=== PATIENT | female | born 1955 | race Caucasian/White ===

== ENCOUNTER → 2023-10-13 10:51 | Outpatient (REF) | payer MEDICARE, BC, SELFPAY | LOC: HWWDC 10:51 | PROVIDERS: ATTENDING PHYSICIAN Obstetrics & Gynecology Gynecology; FAMILY PHYSICIAN Family Medicine | DX: Z12.31 Encounter for screening mammogram for malignant neoplasm of breast (principal) | CPT/HCPCS: 77063; 77067 ==

== ENCOUNTER 2023-12-16 21:22 | Emergency (ER) | payer MEDICARE, BC, SELFPAY ==
[2023-12-16] VITALS (7 sets, daily range): BP systolic 111–146; BP diastolic 61–77; PULSE 74–87
[2023-12-16 22:05] LABS: % Basophils 0.5 % (0-2); % Immature Granulocytes 0.3 % (0-0.5); % Lymphocytes 16.9 % (20.5-51.1); % Neutrophils 72.3 % (42.2-75.2); Absolute Basophils 0.1 10^3/uL (0-0.2); Absolute Eosinophils 0.2 10^3/uL (0-0.7); Absolute Lymphocytes 1.7 10^3/uL (1.2-3.4); Absolute Monocytes 0.8 10^3/uL (0.1-0.6); Absolute Neutrophils 7.3 10^3/uL (1.4-6.5); Hematocrit 33.1 % (37.0-47.0); Hemoglobin 11.6 g/dL (12.0-16.0); Mean Corpuscular Hgb 32.5 pg (27.0-31.0); Mean Corpuscular Volume 92.7 fL (81.0-99.0); Mean Platelet Volume 9.6 fL (7.4-10.4); Nucleated Red Blood Cells % 0 %; Platelet Count 242 10^3/uL (130-400); Red Blood Cell Count 3.57 10^6/uL (4.20-5.40); White Blood Cell Count 10.1 10^3/uL (4.8-10.8)
[2023-12-16 22:26] LABS: ALT (SGPT) 20 U/L (0-35); AST (SGOT) 38 U/L (14-36); Albumin 4.4 g/dl (3.5-5.0); Alkaline Phosphatase 48 U/L (38-126); Blood Urea Nitrogen 19 mg/dl (7-17); Calcium 9.7 mg/dl (8.4-10.2); Carbon Dioxide 22 mmol/L (22-30); Chloride 108 mmol/L (98-107); Glucose 101 mg/dl (70-99); Sodium 140 mmol/L (135-145); Total Bilirubin 0.5 mg/dl (0.2-1.3); eGFR > 60.00
[2023-12-17 00:16] VITALS: BP 124/60
--- NOTE | 2023-12-17 00:41 | ED.GENMED ---
History of Present Illness
General
Chief Complaint: Dizziness
Source: patient and spouse
Exam Limitations: none
Time Seen by Provider: 12/16/23 22:18
Travel History
Have you had any contact with someone who has COVID-19?: No
Do you have any symptoms of coronavirus? Fever > 100 degrees, chills, cough, shortness of breath, sore throat, loss of taste or smell, muscle aches, or headache?: No
History of Present Illness
History of Present Illness:
68-year-old female who presents after noticed there was some blood coming from her mouth while she was sleeping. The patient states that she was tired because she was up all night due to some hip pain which is being evaluated as an
outpatient. Patient's states that he woke her up because she had been sleeping for most 2 hours and dinner was ready. She seemed a little groggy at first for about 15 seconds and then came back to normal. The patient otherwise feels okay.
She states she did feel little bit of cramping in her calves but otherwise felt no chest pain or shortness of breath. did not see any kind of seizure activity.
Past History
Past History
ED Past Medical History: Other (Irritable bowel syndrome, diverticulitis, GERD)
ED Past Surgical History: None
Social History
Personal:
Living: with family
Phy Exam
Physical Exam
Physical Exam:
CONSTITUTIONAL Patient alert and oriented to person, place and time. Well-appearing. Vital signs reviewed.
HEAD atraumatic, normocephalic.
EYES eyelids normal to inspection, Pupils equally round and reactive to light, Extraocular muscles intact, Conjunctiva normal, Sclera normal.
ENT small/minor right tongue abrasion
NECK normal range of motion, Trachea midline, no jugular venous distention.
RESPIRATORY CHEST No respiratory distress noted, Chest expansion equal, Bilateral breath sounds clear.
CARDIOVASCULAR regular rate and rhythm, Heart sounds normal.
ABDOMEN abdomen nontender, Bowel sounds normal. No distention.
BACK normal inspection, no obvious deformities
UPPER EXTREMITY range of motion normal, Motor strength normal, no cyanosis, no edema.
LOWER EXTREMITY range of motion normal, Motor strength normal, no cyanosis, no edema.
NEURO Speech normal, No focal motor deficits, Sammy coma scale 15, Memory normal, Cranial Nerves intact to screening exam. No pronator drift. Normal [id number].
SKIN skin warm, dry, and normal in color.
PSYCHIATRIC patient oriented to person place and time, Normal affect.
Course
Orders/Labs/Results
Orders:
Orders
12/16/23 21:50
EKG [Electrocardiogram (*1)] Urgent
Reason for Study: Vertigo / Dizzy
12/16/23 21:51
EKG- Treatment ONCE
12/16/23 21:58
Complete Blood Count/With Diff Urgent
Comprehensive Metabolic Panel Urgent
12/16/23 22:42
CT Head W/o Iv Contrast Urgent
Comment:
Reason For Exam: dizzy, possible seizure
12/16/23 22:48
Orthostatic VS- Treatment ONCE
Abnormal Lab Results
12/16/23
21:58
RBC 3.57 L 10^6/uL
(4.20-5.40)
Hgb 11.6 L g/dL
(12.0-16.0)
Hct 33.1 L %
(37.0-47.0)
MCH 32.5 H pg
(27.0-31.0)
Absolute Neuts (auto) 7.3 H 10^3/uL
(1.4-6.5)
Absolute Monos (auto) 0.8 H 10^3/uL
(0.1-0.6)
Lymphocytes % 16.9 L %
(20.5-51.1)
Chloride 108 H mmol/L
(98-107)
BUN 19 H mg/dl
(7-17)
Glucose 101 H mg/dl
(70-99)
AST 38 H U/L
(14-36)
12/16/23 21:58
12/16/23 21:58
Vital Signs
Initial and Last Documented VS:
Initial Vital Signs
Temp Pulse Resp BP Pulse Ox
98.5 F 82 16 146/77 97
12/16/23 21:36 12/16/23 21:36 12/16/23 21:36 12/16/23 21:36 12/16/23 21:36
Last Documented Vital Signs
Temp Pulse Resp BP Pulse Ox
98.5 F 88 25 125/66 99
12/16/23 21:36 12/16/23 23:30 12/16/23 23:30 12/16/23 23:00 12/16/23 23:30
MDM/Problems Addressed
MDM/Problems Addressed:
Tongue abrasion, rule out seizure
*Radiology
Radiology exam reviewed: preliminary read by ED provider (No obvious intracranial hemorrhage) and radiology read reviewed
*Pulse Oximetry
Patient hypoxic: no
*EKG
Interpreted by ED Provider?: Yes
Interpretation: normal
Rate: normal
Rhythm: sinus
[place]: normal axis
QRS Pattern: normal QRS
Ischemia: no ischemia
*Shoe Cutter Interpretation
Rate: normal
Interpretation: normal
Rhythm: sinus
*Critical Care Note
Total Time (30-74mins, 75-104mins- exclusive of procedures): Not Applicable
Data Reviewed
Review of Other/Old Records Reveals: Operative Reports (Cardiac cath report reviewed from December 2020, normal)
Source: patient
Prescriptions/Medications Considered But Not Given:
Considered antiepileptics but no clear evidence of seizure
Patient Management
Escalation/DeEscalation of care consider admission/obs:
Tongue abrasion noted but no noted seizure activity or post ictal phase that is consistent with seizure. In addition not acidotic. Of course difficult to ascertain as the patient was sleeping in her bedroom. Labs grossly unremarkable. Exam
normal. Okay for discharge and outpatient PCP follow-up
ED Attending Note
-
Portions of this chart may have been created with voice recognition software.� Occasional wrong word or��sound alike� substitutions may have occurred due to the inherent limitations of voice recognition software.
Discharge Plan
Departure
Patient Disposition: Home (Routine Discharge)
Date of Disposition: 12/17/23
Time of Disposition: 00:44
Patient with high blood pressure during this ER visit?: No
Discharge Problem:
Abrasion of tongue
Prescriptions:
No Action
Centrum Silver Women Tablet
1 tab PO DAILY
cyanocobalamin (vitamin B-12) 1,000 MCG tablet
1,000 mcg PO DAILY
fluticasone propionate [Flovent HFA] 1 PUFF HFA aerosol inhaler
2 puff inhalation R BID
omeprazole magnesium 20 MG tablet,delayed release (DR/EC)
20 mg PO DAILY
Patient Comments:
take 30 minutes before meal
L.acidoph, paracasei,B. lactis 1 EACH capsule
1 ea PO DAILY
Referrals:
Mikal Davidson MD [Family Provider] -
Activity Restrictions/Additional Instructions:
Return immediately for seizure activity, change in mentation, chest pain, shortness of breath, weakness of any kind, lethargy, weakness or any other concerns. Please see your doctor in the next 3 to 5 days for follow-up and reevaluation. If
symptoms recur, further workup may be necessary.
Interventions
Interventions:
*Risk Screen - Suicide Last Done: 12/16/23 21:36
*General Assessment Last Done: 12/16/23 21:36
*Neglect/Abuse Screening Last Done: 12/16/23 21:36
*ED COVID-19 Vaccine History Last Done: 12/16/23 22:17
ED- Neurological Assessment Last Done: 12/16/23 23:30
ED Swallowing Screen Last Done: 12/16/23 23:30
Discharge Date and Time
Print Language: FAROESE
[2023-12-17 00:58] VITALS: BP 127/70
== END 2023-12-17 01:05 | disposition home or self-care (01) ==
LOC: EMR 21:22
PROVIDERS: Emergency Medicine; EMERGENCY PHYSICIAN Emergency Medicine; FAMILY PHYSICIAN Family Medicine
DX: S00.512A Abrasion of oral cavity, initial encounter (principal); X58.XXXA Exposure to other specified factors, initial encounter
CPT/HCPCS: 99285; 70450; 80053; 85025; 93005

== ENCOUNTER → 2024-03-02 07:52 | Outpatient (REF) | payer MEDICARE, BC, SELFPAY ==
[2024-03-02 10:09] LABS: % Basophils 1.3 % (0-2); % Eosinophils 5.6 % (0-6); % Immature Granulocytes 0.2 % (0-0.5); % Lymphocytes 28.5 % (20.5-51.1); % Monocytes 9.5 % (1.7-9.3); % Neutrophils 54.9 % (42.2-75.2); Absolute Basophils 0.1 10^3/uL (0-0.2); Absolute Eosinophils 0.3 10^3/uL (0-0.7); Absolute Lymphocytes 1.6 10^3/uL (1.2-3.4); Absolute Monocytes 0.5 10^3/uL (0.1-0.6); Absolute Neutrophils 3.1 10^3/uL (1.4-6.5); Hematocrit 38.5 % (37.0-47.0); Hemoglobin 13.1 g/dL (12.0-16.0); Mean Corpuscular Hgb 32.9 pg (27.0-31.0); Mean Corpuscular Volume 96.7 fL (81.0-99.0); Mean Platelet Volume 9.7 fL (7.4-10.4); Nucleated Red Blood Cells % 0 %; Platelet Count 282 10^3/uL (130-400); Red Blood Cell Count 3.98 10^6/uL (4.20-5.40); Red Cell Dist. Width 12.2 % (11.5-14.5); White Blood Cell Count 5.6 10^3/uL (4.8-10.8)
[2024-03-02 11:49] LABS: Urine Protein < 5 mg/dl
[2024-03-02 12:34] LABS: ALT (SGPT) 29 U/L (0-35); AST (SGOT) 35 U/L (14-36); Albumin 4.5 g/dl (3.5-5.0); Alkaline Phosphatase 55 U/L (38-126); Blood Urea Nitrogen 20 mg/dl (7-17); Calcium 9.7 mg/dl (8.4-10.2); Carbon Dioxide 26 mmol/L (22-30); Chloride 107 mmol/L (98-107); Glucose 99 mg/dl (70-99); HDL Cholesterol 99 mg/dl; LDL Cholesterol, Calculated 134 mg/dl; Phosphorus 4.5 mg/dl (2.5-4.5); Potassium 4.5 mmol/L (3.5-5.1); Sodium 140 mmol/L (135-145); Total Bilirubin 0.5 mg/dl (0.2-1.3); Total Cholesterol 245 mg/dl (50-199); Total Protein 7.1 g/dl (6.3-8.2); Triglyceride 63 mg/dl (10-149); Very Low Density Lipoprotein 12 mg/dl (0-30); eGFR > 60.00
[2024-03-02 12:59] LABS: TSH 1.48 uIU/ml (0.47-4.68)
== END ==
LOC: HWLAB 07:52
PROVIDERS: ATTENDING PHYSICIAN Internal Medicine; FAMILY PHYSICIAN Family Medicine
DX: E78.2 Mixed hyperlipidemia (principal); D64.9 Anemia, unspecified; E87.5 Hyperkalemia; E04.1 Nontoxic single thyroid nodule
CPT/HCPCS: 36415; 80053; 80061; 82570; 84100; 84156; 84443; 85025

== ENCOUNTER → 2024-03-19 07:51 | Outpatient (REF) | payer MEDICARE, BC, SELFPAY | LOC: HWRAD 07:51 | PROVIDERS: ATTENDING PHYSICIAN Internal Medicine Endocrinology, Diabetes & Metabolism; FAMILY PHYSICIAN Family Medicine; REFERRING PHYSICIAN Obstetrics & Gynecology Gynecology | DX: M85.80 Other specified disorders of bone density and structure, unspecified site (principal); M85.89 Other specified disorders of bone density and structure, multiple sites | CPT/HCPCS: 77080 ==

== ENCOUNTER 2024-05-28 05:23 | Inpatient (IN) | payer MEDICARE, BC, SELFPAY ==
[2024-05-28] VITALS (12 sets, daily range): BP systolic 101–140; BP diastolic 53–91; BMI 21.2; BMI 20.2
[2024-05-28 00:46] LABS: % Basophils 0.6 % (0-2); % Eosinophils 3.2 % (0-6); % Immature Granulocytes 1.2 % (0-0.5); % Lymphocytes 27.2 % (20.5-51.1); % Monocytes 6.7 % (1.7-9.3); % Neutrophils 61.1 % (42.2-75.2); Absolute Basophils 0.1 10^3/uL (0-0.2); Absolute Eosinophils 0.3 10^3/uL (0-0.7); Absolute Immature Granulocytes 0.1 10^3/uL (0-0.05); Absolute Lymphocytes 2.6 10^3/uL (1.2-3.4); Absolute Monocytes 0.7 10^3/uL (0.1-0.6); Absolute Neutrophils 5.9 10^3/uL (1.4-6.5); Hematocrit 36.5 % (37.0-47.0); Hemoglobin 12.5 g/dL (12.0-16.0); Mean Corp Hgb Conc. 34.2 g/dL (33.0-37.0); Mean Corpuscular Hgb 32.4 pg (27.0-31.0); Mean Corpuscular Volume 94.6 fL (81.0-99.0); Mean Platelet Volume 9.8 fL (7.4-10.4); Nucleated Red Blood Cells % 0 %; Platelet Count 291 10^3/uL (130-400); Red Blood Cell Count 3.86 10^6/uL (4.20-5.40); Red Cell Dist. Width 12.3 % (11.5-14.5); White Blood Cell Count 9.7 10^3/uL (4.8-10.8)
--- NOTE | 2024-05-28 01:03 | ED.GENMED ---
History of Present Illness
<CARLEY Ashraf - Last Filed: 05/28/24 06:14>
General
Chief Complaint: Seizure
Source: patient and significant other
Exam Limitations: clinical condition
Time Seen by Provider: 05/28/24 00:38
Nursing documentation reviewed up to this point in time: agreed with
History of Present Illness
History of Present Illness:
Patient is a 69y F who presents to ED via EMS for suspected seizure activity witnessed by . He reports noticing her breathing very heavily during sleep and tried to wake her up. Reports she would not wake up but her eyes opened. States
breathing stopped after a few mins but she continued to stare unresponsive. Thinks she might have had some red tinged drool coming out of her mouth. He was concerned for seizure due to suspected seizure occurring in November. Is scheduled for evaluation
w/ maycol next month. Pt remained unresponsive until 911 arrived. She does not remember the ambulance ride and is currently very disoriented. She is questioning what day it is and does not remember going to bed. She does not remember dinner or the
events of the day until reminds her. Currently admits to nausea, fatigue, and hypothermia. She states multiple times that she feels motion sick and very cold. She denies [place], dizziness, chest pain, SOB, and V/D/C. Denies recent illness.
States she felt well today w/o any sxs.
Past History
<Steve Romero DO - Last Filed: 05/28/24 03:41>
Past History
ED Past Medical History: Other (Irritable bowel syndrome, diverticulitis, GERD)
ED Past Surgical History: None
Social History
Personal:
Living: with family
Review of Systems
<CARLEY Ashraf - Last Filed: 05/28/24 06:14>
Review of Systems
Constitutional: Reports fatigue and chills; Denies fever
Respiratory: Denies cough or trouble breathing
Cardiac: Denies chest pain or palpitations
ABD/GI: Reports nausea; Denies abdominal pain, vomiting, diarrhea or constipated
: Denies dysuria
Musculoskeletal: Denies joint pain, muscle pain, edema, neck pain or back pain
Neurological: Denies dizzy, headache, weakness or numbness
Phy Exam
<ST AndriySD - Last Filed: 05/28/24 06:14>
General Physical Exam
General Presentation: no apparent distress
General age: appears stated age
General Skin: warm and dry
General Habitus: normal
General Mental: confused
ENT Exam
ENT Exam: EOMI, pharynx normal, normocephalic and swallowing well
Eye Exam
Eye Exam: PERRL, conjunctiva normal and visual acuity normal
Cardiovascular Exam
Cardiovascular Exam: regular rate/rhythm, no edema, no gallop and no murmur
Pulmonary Exam
Pulmonary Exam: lungs clear, no respiratory distress, no rales, no crackles, no rhonchi and no wheezing
Neurological Exam
Neurological Exam: alert, oriented x3 and speech normal
Cranial
Cranial Nerves: normal and no facial asymetry
EOM (CN3/4/6): intact
Motor
Seizure Activity: none
Bilateral upper extremities: 5
Bilateral lower extremities: 5
Comment
comment:
unable to complete neuro exam due to development of nausea/vomiting
Course
<[facility] Filed: 05/28/24 06:14>
Orders/Labs/Results
Orders:
Orders
05/28/24 00:29
CT Head W/o Iv Contrast Urgent
Comment:
Reason For Exam: seizure
05/28/24 00:31
CMP [Comprehensive Metabolic Panel] Urgent
Complete Blood Count/With Diff Urgent
05/28/24 01:35
Ondansetron Injectable [Zofran] 4 mg .ROUTE .STK-MED ONE
05/28/24 01:36
Ondansetron Injectable [Zofran] 4 mg IV NOW STA
05/28/24 02:20
Levetiracetam Injectable [Keppra] 2,000 mg IV NOW STA
05/28/24 02:31
CT Head & Neck Angio W/wo IV Urgent
Comment:
Reason For Exam: Transient expressive aphasia, new onset
05/28/24 02:38
Levetiracetam Injectable [Keppra] 500 mg .ROUTE .STK-MED ONE
05/28/24 05:02
Admit/Transfer Patient As Directed
Co-Sign Provider:
Level of Care: Inpatient admission
Assign to:: Telemetry
Physician / Group: Jorgito
Diagnosis: Seizure
Reason for Telemetry: Arrhythmia
Date to Stop Telemetry: 05/31/24
Time to Stop Telemetry: 11:00
Reason for Hospitalization: Seizure
Expected length of stay greater than two midnights?: Yes
ELOS- Estimated Length of Stay in days: 2
I certify the patient meets the requirements for IP care: Yes
PRN Pain Medication Management As Directed
May give lesser potent ordered pain med per pt: Yes
preference::
Protocol:: Medication orders for pain may be administered in a
manner that supports deferring to patient preference
when the pt is:
- Requesting an ordered lesser potent pain medication.
Least to most potent pain medications are defined
as: acetaminophen < NSAID < tramadol < opioids
(morphine, oxycodone, hydromorphone).
- Requesting a lesser dose of the same medication IF
ORDERED.
- Requesting a less intrusive route of administration
if both routes are prescribed by the provider (PO <
IV).
05/28/24 05:03
Code Status As Directed
Resuscitation Status: Full Code
05/31/24 11:00
DC Protocol for Telemetry ONCE
Abnormal Lab Results
05/28/24 05/28/24
00:31 02:23
RBC 3.86 L 10^6/uL
(4.20-5.40)
Hct 36.5 L %
(37.0-47.0)
MCH 32.4 H pg
(27.0-31.0)
Abs Immat Gran (auto) 0.1 H 10^3/uL
(0-0.05)
Absolute Monos (auto) 0.7 H 10^3/uL
(0.1-0.6)
Immature Gran % 1.2 H %
(0-0.5)
Carbon Dioxide 19 L mmol/L
(22-30)
Glucose 131 H mg/dl
(70-99)
POC Glucose 115 H mg/dl
(70-99)
05/28/24 00:31
05/28/24 00:31
Vital Signs
Initial and Last Documented VS:
Initial Vital Signs
Temp Pulse Resp BP Pulse Ox
98.4 F 111 19 140/91 96
05/28/24 00:22 05/28/24 00:22 05/28/24 00:22 05/28/24 00:22 05/28/24 00:22
Last Documented Vital Signs
Temp Pulse Resp BP Pulse Ox
98.4 F 84 16 127/58 94
05/28/24 00:22 05/28/24 03:00 05/28/24 03:00 05/28/24 03:00 05/28/24 03:00
<Steve Romero, DO - Last Filed: 05/28/24 03:41>
Orders/Labs/Results
Orders:
Orders
05/28/24 00:29
CT Head W/o Iv Contrast Urgent
Comment:
Reason For Exam: seizure
05/28/24 00:31
CMP [Comprehensive Metabolic Panel] Urgent
Complete Blood Count/With Diff Urgent
05/28/24 01:35
Ondansetron Injectable [Zofran] 4 mg .ROUTE .STK-MED ONE
05/28/24 01:36
Ondansetron Injectable [Zofran] 4 mg IV NOW STA
05/28/24 02:20
Levetiracetam Injectable [Keppra] 2,000 mg IV NOW STA
05/28/24 02:31
CT Head & Neck Angio W/wo IV Urgent
Comment:
Reason For Exam: Transient expressive aphasia, new onset
05/28/24 02:38
Levetiracetam Injectable [Keppra] 500 mg .ROUTE .STK-MED ONE
05/28/24 05:02
Admit/Transfer Patient As Directed
Co-Sign Provider:
Level of Care: Inpatient admission
Assign to:: Telemetry
Physician / Group: Jorgito
Diagnosis: Seizure
Reason for Telemetry: Arrhythmia
Date to Stop Telemetry: 05/31/24
Time to Stop Telemetry: 11:00
Reason for Hospitalization: Seizure
Expected length of stay greater than two midnights?: Yes
ELOS- Estimated Length of Stay in days: 2
I certify the patient meets the requirements for IP care: Yes
PRN Pain Medication Management As Directed
May give lesser potent ordered pain med per pt: Yes
preference::
Protocol:: Medication orders for pain may be administered in a
manner that supports deferring to patient preference
when the pt is:
- Requesting an ordered lesser potent pain medication.
Least to most potent pain medications are defined
as: acetaminophen < NSAID < tramadol < opioids
(morphine, oxycodone, hydromorphone).
- Requesting a lesser dose of the same medication IF
ORDERED.
- Requesting a less intrusive route of administration
if both routes are prescribed by the provider (PO <
IV).
05/28/24 05:03
Code Status As Directed
Resuscitation Status: Full Code
05/31/24 11:00
DC Protocol for Telemetry ONCE
Abnormal Lab Results
05/28/24 05/28/24
00:31 02:23
RBC 3.86 L 10^6/uL
(4.20-5.40)
Hct 36.5 L %
(37.0-47.0)
MCH 32.4 H pg
(27.0-31.0)
Abs Immat Gran (auto) 0.1 H 10^3/uL
(0-0.05)
Absolute Monos (auto) 0.7 H 10^3/uL
(0.1-0.6)
Immature Gran % 1.2 H %
(0-0.5)
Carbon Dioxide 19 L mmol/L
(22-30)
Glucose 131 H mg/dl
(70-99)
POC Glucose 115 H mg/dl
(70-99)
05/28/24 00:31
05/28/24 00:31
Vital Signs
Initial and Last Documented VS:
Initial Vital Signs
Temp Pulse Resp BP Pulse Ox
98.4 F 111 19 140/91 96
05/28/24 00:22 05/28/24 00:22 05/28/24 00:22 05/28/24 00:22 05/28/24 00:22
Last Documented Vital Signs
Temp Pulse Resp BP Pulse Ox
98.4 F 84 16 127/58 94
05/28/24 00:22 05/28/24 03:00 05/28/24 03:00 05/28/24 03:00 05/28/24 03:00
<CARLEY Ashraf - Last Filed: 05/28/24 06:14>
MDM/Problems Addressed
Differential Diagnosis Includes:
seizure, CVA, TIA
<CARLEY Ashraf - Last Filed: 05/28/24 06:14>
*Critical Care Note
Total Time (30-74mins, 75-104mins- exclusive of procedures): Not Applicable
<CARLEY Ashraf - Last Filed: 05/28/24 06:14>
Update Note
Update Note:
05/28/2024 1:38 AM: Patient has begin vomiting.
<Steve Romero DO - Last Filed: 05/28/24 03:41>
Update Note
Update Note:
05/28/2024 1:38 AM: Patient has begin vomiting.
CT HEAD
Comparison: 12/16/2023.
IMPRESSION:
No acute intracranial hemorrhage, mass effect, or midline shift.
Mild global volume loss and chronic small vessel ischemic white matter change.
Morris-white differentiation is intact.
05/28/2024 0223 AM: Spoke with Dr. May, neurology who recommended admission, Keppra and EEG. I spoke with patient who agreed to be admitted to the hospitalist service. I left the room to contact the hospitalist and call back by nursing.
Nursing went into check on patient and found that she was having expressive aphasia. I went back to the room immediately, patient was back to baseline. She was speaking clearly and purposefully. No expressive aphasia noted. witnessed the
event and stated that it now resolved.
CTA NECK
CTA COW
IMPRESSION:
Comparison: Same day head CT.
CTA NECK
No high grade stenosis, occlusion, or dissection of the bilateral common carotid, bilateral internal carotid, or bilateral vertebral arteries.
CTA COW
No large vessel occlusion.
No aneurysm.
ED Attending Note
<Steve Romero, DO - Last Filed: 05/28/24 03:41>
ED Attending Note
Patient seen and examined by attending physician: Yes
I performed the substantive portion of visit, reviewed & personally made and approve the management plan that is documented in note by myself or MACK.: Yes
ED Attending Note:
Pleasant 69-year-old female presents to the emergency department after having an episode of suspected seizure activity. Patient presents and states that she did not remember being in an ambulance at all. Patient's states that he noticed
she breathing very heavily during sleep. He tried to wake her up and she would not arise. Patient states that her membranes come back to her but states that she feels dizzy and cold. She denies headache or chest pain. Reports no shortness of
breath or abdominal pain. Denies fever, chills. Patient was seen in conjunction with the PA student. I have reviewed and agree with the history and treatment plan presented. On my independent physical exam, patient is awake, alert, and oriented
x3, minimal acute distress. She is nauseated with 1 bout of emesis while here in the emergency department. Heart is regular rate rhythm. Lungs are clear to auscultation bilaterally abdomen soft nontender. Moves all 4 extremities. Skin is warm
and dry. Her , present at the bedside, states that she is mentating appropriately at he does not detect any slurred speech.
Spoke with Dr. Castellano, neurology did recommend starting Keppra and follow-up as an outpatient. She does recommend an outpatient EEG.
-
Portions of this chart may have been created with voice recognition software.� Occasional wrong word or��sound alike� substitutions may have occurred due to the inherent limitations of voice recognition software.
Discharge Plan
Departure
Patient Disposition: Admit
Date of Disposition: 05/28/24
Time of Disposition: 02:18
Admit to: Telemetry
Presentation/result/management discussed w/ accepting MD/DO: Hospitalist
Condition: Good
Discharge Problem:
New onset seizure
Interventions
Interventions:
*Risk Screen - Suicide Last Done: 05/28/24 00:22
*General Assessment Last Done: 05/28/24 00:22
*Neglect/Abuse Screening Last Done: 05/28/24 00:22
ED- Fall Risk Assessment Last Done: 05/28/24 00:30
*ED COVID-19 Vaccine History Last Done: 05/28/24 00:22
ED- Cardiac Assessment Last Done: 05/28/24 00:30
ED- Neurological Assessment Last Done: 05/28/24 00:30
ED- Pulmonary Assessment Last Done: 05/28/24 00:30
[2024-05-28 01:05] LABS: ALT (SGPT) 24 U/L (0-35); AST (SGOT) 33 U/L (14-36); Albumin 4.8 g/dl (3.5-5.0); Alkaline Phosphatase 39 U/L (38-126); Blood Urea Nitrogen 14 mg/dl (7-17); Calcium 9.7 mg/dl (8.4-10.2); Carbon Dioxide 19 mmol/L (22-30); Chloride 106 mmol/L (98-107); Estimated Creatinine Clearance 64 ml/min; Glucose 131 mg/dl (70-99); Potassium 4.7 mmol/L (3.5-5.1); Sodium 144 mmol/L (135-145); Total Bilirubin 0.3 mg/dl (0.2-1.3); Total Protein 7.4 g/dl (6.3-8.2); eGFR > 60.00
--- NOTE | 2024-05-28 01:30 | EDRN ---
Patient complained of being nauseated, and threw up a little, informed Dr. Romero who ordered meds, will re-assess.
[2024-05-28] MEDS: ZOFRAN 4 MG IV (01:37)
[2024-05-28 02:24] LABS: Glucose - Point of Care 115 mg/dl (70-99)
--- NOTE | 2024-05-28 02:30 | EDRN ---
Dr. Romero in to talk with patient and and inform them she will be admitted to the hospital, after he was done went into the room to see how patients nausea was doing and patient started rambling giberish and not making any sense,
asked her if she felt ok and she just kept saying 'seth early, giaitwood tracey' informed Dr. Romero who goes in to re-assess patient who is completely back to normal and doesn't remember the event that just happened.
[2024-05-28] MEDS: KEPPRA 2000 MG IV (02:37)
--- NOTE | 2024-05-28 05:07 | HPS.HSE ---
Family Physician
-
Family Physician: Mikal Davidson
Chief Complaint
-
Unresponsive
History of Present Illness
Patient is a 69y F with PMH significant for hypertension and GERD who presents to ED for evaluation of unresponsiveness this evening. History obtained from patient and her at the bedside. Pateint states that she felt tired last PM and
went to be early. The next thing she recalls is waking here in the ED.
states that he woke in the middle of the night to the patient breathing very heavily / rapidly. He attempted to wake her but she was completely unresponsive. He turned on the the lights and noted that her eyes were open and she was staring
and remained unresponsive. This persisted for several minutes and he called 911.
Patient remained unresponsive for EMS and was transported to the ED for evaluation.
In the ED, patient has been awake and responsive - if confused at times.
Patient has a prior history of waking with tongue laceration (12/16/23). She was evaluated here in the ED and evaluation was otherwise unremarkable. She was advised to follow-up with her PCP in this regard.
Patient denies any other prior history of seizure activity, etc.
No new medications or recent illness.
Medical History
Past Medical History
Past Medical History: Reports Other
Additional Past Medical History:
Hypertension
GERD
Diverticular Disease
Allergic Asthma
Past Surgical History: Reports Other
Additional Past Surgical History:
D&C x 2
Cataracts
Social History
Tobacco: Non-smoker
Alcohol: Daily (1-2 glasses of wine daily.)
Drug: None
Personal:
Living: With Family
Family History
Family History: Not pertinent
Allergies / Home Medications
Allergies reflects when Allergies were last updated in [facility].
Home Medications with original date entered in [facility]
Allergy/Medication List:
Allergies
Allergy/AdvReac Type Severity Reaction Status Date / Time
metronidazole [From Flagyl] Allergy Nausea / Verified 05/28/24 00:28
Vomiting
pineapple Allergy Rash Verified 05/28/24 00:28
Home Medications
Centrum Silver Women Tablet 1 tab PO DAILY 09/01/18
cyanocobalamin (vitamin B-12) 1,000 mcg tablet 1,000 mcg PO DAILY 01/13/21
omeprazole magnesium 20 mg tablet,delayed release 20 mg PO DAILY 01/13/21
amlodipine 2.5 mg tablet 2.5 mg PO DAILY 05/28/24
beclomethasone dipropionate 80 mcg/actuation aerosol inhaler 80 mcg inhalation BID 05/28/24
levalbuterol tartrate 45 mcg/actuation aerosol inhaler 2 inh inhalation Q6H PRN SOB 05/28/24
Review of Systems
-
History Source: Patient
A 12 point ROS was completed and negative except as noted: Yes
Constitutional: Reports Fatigue; Denies Fever or Chills
EENT: Reports Other (Tongue discomfort); Denies Sore Throat
Respiratory: Denies Cough
Cardiac: Denies Chest Pain or Syncope
Abdomen/GI: Denies Abdominal Pain, Nausea, Vomiting or Diarrhea
: Denies Dysuria, Frequency or Flank Pain
Neurological: Denies Dizzy or Headache
Psych: Reports Other (Memory impairment / unresponsive episode.); Denies Depression or Anxiety
Physical Exam
Vital Signs
Vital Signs
Temp Pulse Resp BP Pulse Ox
98.4 F 84 16 127/58 94
05/28/24 00:22 05/28/24 03:00 05/28/24 03:00 05/28/24 03:00 05/28/24 03:00
Physical Exam
General: Other (69y F in no acute distress.)
HEENT: Moist mucous membranes, PERRLA and Other (Small abrasion / laceration on the R lateral aspect of the tongue. No active bleeding.)
Respiratory: Clear; No Wheezes, Rales or Rhonchi
Cardiac: S1/S2 and Regular Rhythm; No Murmur
GI: Soft, Non Tender, Non Distended and Normal Bowel Sounds
Musculoskeletal: No Clubbing, No Cyanosis and No Edema
Neuro: AO x 3 and Nonfocal/grossly intact
Laboratory Results
-
05/28/24 00:31
05/28/24:
Laboratory Results
Total Bilirubin 0.3 mg/dl (0.2-1.3) 05/28/24:31
AST 33 U/L (14-36) 05/28/24:
ALT 24 U/L (0-35) 05/28/24:
Alkaline Phosphatase 39 U/L (38-126) 05/28/24:31
Impression/Plan
-
A/P: Patient is a 69y F with PMH significant for hypertension and GERD who presents to ED for evaluation of unresponsive episode at home this evening.
Seizure Activity
- Admit for further evaluation and treatment.
- New recognition of seizure disorder. In retrospect, suspect that similar episode occurred in November but was unwitnessed at that time.
- Keppra load given in the ED.
- CT head and CTA were unremarkable.
- Check MRI brain and EEG in the AM.
- Continue Keppra BID for now.
- Ativan IV as needed fro any breakthrough seizure activity.
- Neurology evaluation for additional recommendations.
- Note anion gap acidosis on initial labs - likely due to seizure and should resolve without intervention - follow-up AM labs.
Benign Hypertension
- Stable. Hold low dose amlodipine for now and follow BP.
GERD
- Stable. Continue daily PPI.
Allergic Asthma
- Stable. No current symptoms, dyspnea, cough, etc.
- Hold Qvar for now.
- Albuterol PRN.
DVT Prophylaxis: SCDs
Code Status: Full
[2024-05-28] MEDS: NORVASC 2.5 MG PO (07:33)
[2024-05-28] MEDS: PROTONIX 40 MG PO (07:33)
--- NOTE | 2024-05-28 08:07 | W.PN.HOSP.TC ---
Today's Communication/Plan
-
Continue Keppra
MRI Brain
PT/OT
Assessment / Plan
Assessment / Plan
Physical Exam
General: Not in acute distress
HEENT: Moist mucous membranes
Respiratory: CTAB
Cardiac: S1/S2 and Regular Rhythm
GI: Soft, Non Tender, Non Distended and Normal Bowel Sounds
Musculoskeletal: No Cyanosis and No Edema
Neuro: AAO x 3. Cranial Nerves 2 through 12 grossly intact. Strength 5/5 bilaterally, and sensation grossly intact bilaterally.
Assessment/Plan
Patient is a 69 y/o female with past medical history significant for hypertension and GERD who presented to ED for evaluation of unresponsive episode at home.
Seizure Activity
Abrupt onset of change in mental status with recurrent episodes of tongue biting from sleep
Probable left hemispheric focal onset generalizing seizures from sleep
- New recognition of seizure disorder. In retrospect, suspect that similar episode occurred in November but was unwitnessed at that time.
- Keppra load given in the ED.
- CT head and CTA were unremarkable.
- MRI brain showed 'Mild atrophy with sequelae of moderate small vessel ischemic disease. Right mastoid effusion.' as per radiologist's report
- Requested ENT input given patient's right mastoid effusion finding on MRI Brain
- EEG unremarkable
- Continue new levetiracetam 1 g by mouth every 12 hours
- Ativan IV as needed fro any breakthrough seizure activity.
- Neurology evaluation for additional recommendations, appreciate neurology.
- Outpatient diagnostic polysomnogram to diagnose if there is a sleep-related abnormality producing increased likelihood of seizure
- Continue neurological checks and seizure precautions.
- [facility] [place] [facility]
- Note anion gap acidosis on initial labs - likely due to seizure and should resolve without intervention - follow-up AM labs.
Benign Hypertension
- Stable. Hold low dose amlodipine for now and follow BP.
GERD
- Stable. Continue daily PPI.
Allergic Asthma
- Stable. No current symptoms, dyspnea, cough, etc.
- Hold Qvar for now.
- Albuterol PRN.
Additional Past Medical History
Cervical radiculopathy/DDD, herniated disc C4-6, vitamin B12 deficiency, IBS, diverticulitis, thyroid nodule, asthma, osteopenia, arthritis
DVT Prophylaxis: Lovenox and SCDs.
Diet: As per speech therapy recommendations: IDDSI Level 7 (regular) and thin liquids
Code Status: Full Code
Anticipated Discharge: Within 24 hours
Subjective/Interval History
-
Date of Service: May 28, 2024
Patient was seen and examined. She reported feeling better than when she came in. She denied blurry vision, numbness, tingling or any other neurologic symptoms.
Objective Data
-
Labs:
Laboratory Results
05/28/24
00:31
WBC 9.7
Hgb 12.5
Hct 36.5 L
Plt Count 291
Sodium 144
Potassium 4.7
Chloride 106
Carbon Dioxide 19 L
BUN 14
Creatinine 0.7
Glucose 131 H
Calcium 9.7
Total Bilirubin 0.3
AST 33
ALT 24
Alkaline Phosphatase 39
Vital Signs:
Vital Signs
Temp Pulse Resp BP Pulse Ox
98.0 F 75 20 101/67 97
05/28/24 06:24 05/28/24 07:33 05/28/24 06:24 05/28/24 07:33 05/28/24 06:24
--- NOTE | 2024-05-28 08:59 | PTCARENOTE ---
pt aaox3. states no pain. slow speech at times. states she feel much more alert and stronger than when she arrived. able to walk to stretcher for eeg. seizure pads in place
--- NOTE | 2024-05-28 09:27 | CON.NEURO4 ---
Addendum entered and electronically signed by Sergio Holliday MD 05/28/24 16:19:
Studies reviewed.
I have personally examined the patient. I reviewed and agree with the MOLECULAR GENETIC PATHOLOGIST's Note.
My addenda:
Awake, alert, interactive. No acute distress.
Speech intact.
Follows 2-step requests w/o difficulty. No tremor.
Extra-ocular movements grossly intact.
Facial movements full and symmetric. Hearing intact to normal conversational volume.
Normal UE movements bilaterally.
Neck: full ROM.
Chest: no dyspnea
Heart: no JVD
Ext: (-) Clubbing, (-) Cyanosis, (-) Edema
IMPRESSIONS/RECOMMENDATIONS:
Abrupt onset of change in mental status with recurrent episodes of tongue biting from sleep
Probable left hemispheric focal onset generalizing seizures from sleep
Continue newly initiated levetiracetam 1 g by mouth every 12 hours
Outpatient diagnostic polysomnogram to diagnose if there is a sleep-related abnormality producing increased likelihood of seizure
Follow MRI of brain results
D/W patient
Will continue to follow pending results.
Original Note:
Consultation - Neurology 4
-
CONSULTING PHYSICIAN: Sergio Holliday MD
REFERRING PHYSICIAN: Hospitalists/Dr. Parikh
DICTATED BY: KWAN Morse
DATE/TIME OF REQUEST: 05/28/24
DATE/TIME OF CONSULTATION: 05/28/24
Reason for Consultation: Concern for seizure
History of Present Illness:
This is a 69-year old right-handed female who has presented to the hospital with report of unresponsiveness. Patient reports that yesterday she was feeling fatigued, which is not unusual for her, and she went to bed right after dinner. At some
point during the night, her told her that he awoke and found her breathing heavily/rapidly. He tried to wake her up but she was unresponsive. He turned the lights on and noted that her eyes were open and she was starring but still wasn't
responding to him, prompting him to call 911. Patient became responsive again on EMS arrival but had no recollection of the day and was disoriented in the ER. She was reporting motion sickness which is not unusual for her, and feeling cold.
Currently, she notes still feeling tired but her brain feels less 'foggy' than earlier. She notes some pain on the right side of her tongue. She denies any incontinence of bowel/bladder. She denies any headache, dizziness, vision changes,
speech/swallow difficulty, numbness, weakness, chest pain, palpitations, and shortness of breath. She notes rare chronic left-sided headaches, her last one was 6 months ago. She also noes chronic lower back pain with radiation to her thighs while
sleeping.
She reports that this is her third episode of unresponsiveness associated with sleep. About 2 years ago she reports having the first episode that was somewhat similar to this in the middle of the night. Then in November 2023 she reports having a poor
night of sleep and laying down for a nap the following day. Her went to wake her up from the nap after about 2 hours to have dinner, and found her mouth bloody with abnormal breathing. She was evaluated at ER at that time but was not felt
to be post-ictal and was discharged home with PCP follow-up, not started on antiseizure medications. She notes having bit the right side of her tongue with that event. Patient notes that she has never had body shaking or incontinence with these
episodes. She wakes up 3-4 times per night to urinate and her tells her intermittently that she snores. She denies any history of head/neck trauma or personal/family history of seizure. She drinks 1-2 glasses of wine with dinner daily.
Past Medical History: HTN, cervical radiculopathy/DDD, herniated disc C4-6, GERD, vitamin B12 deficiency, IBS, diverticulitis, thyroid nodule, asthma, osteopenia, arthritis
Surgical History: Cardiac cath, D&C x2, bilateral cataract removal.
Family History: Mother- stroke.
Social History: 1-2 glasses of wine daily with dinner. Denies tobacco and illicit drug use.
Allergies: Pineapple, metronidazole.
Home Medications: See below.
Review of Symptoms:
Patient denies any fever, headache, chest pain, shortness of breath, GI or symptoms.
�Per the HPI.�All systems are reviewed negative except above.
Physical Exam:
The patient is afebrile, abdomen is nondistended, breathing is unlabored, skin is warm and dry, no edema. There is a small right tongue laceration.
Neurologic Examination:
The patient is awake, alert and oriented x 3. She is able to follow commands and answer questions appropriately. There is no aphasia or dysarthria. On cranial nerve assessment, pupils are 3 mm bilateral, round and reactive to light and
accommodation. Visual bee are full. Extraocular movements are intact. Facial sensations are intact and bilaterally symmetrical, there is no facial asymmetry. Hearing is intact bilaterally to normal conversation volume. Tongue palate and uvula are
midline. There is a small tongue laceration. Sternocleidomastoid strengths are full bilaterally. Motor strengths are 5/5 bilateral upper and lower extremities on medical research [place] scale. There is no drift or involuntary movement noted. Deep
tendon reflexes are 2+ bilateral upper and lower extremities and Babinski is absent bilaterally. Sensations of touch, temperature and vibration are intact and bilaterally symmetrical. There was no extinction noted on double simultaneous stimulation.
Coordination is intact by finger to nose bilaterally.
Lab Results: See below.
Neuro Imaging:
1. CT Head 05/28/24: No acute intracranial abnormality.
2. CTA Head/Neck 05/28/24: No CTA evidence for high-grade stenosis or occlusion of the arterial vasculature in the head or neck.
3. EEG 05/28/24: Unremarkable EEG for age.
Differentials for the patient's presentation include:
1. Sleep-provoked partial seizure likely producing recurrent similar events with tongue biting.
2. Poor sleep, frequent nighttime awakenings, snoring.
Patient has the following risk factors for their symptoms: Several night time awakenings, poor sleep.
Recommendations:
-MRI brain w/ and w/o contrast pending.
-Continue levetiracetam 1000mg PO q12hrs.
-Neurological checks and seizure precautions.
-Will have Neurology office report this event to [facility] per [facility] law.
-Outpatient sleep study may be beneficial.
-PT/OT/ST evaluations.
-DVT prophylaxis.
-Will follow pending results.
-Patient will need to follow-up with Neurology as an outpatient, may see the MOLECULAR GENETIC PATHOLOGIST or Dr. Holliday.
Discussed patient care with: Dr. Holliday, the patient.
Vital Signs and Labs
-
Vital Signs and Labs:
Vital Signs
Temp Pulse Resp BP Pulse Ox
98.4 F 60 16 136/66 99
05/28/24 11:13 05/28/24 11:13 05/28/24 11:13 05/28/24 11:13 05/28/24 11:13
Lab Results
05/28/24 00:31
05/28/24 00:31
Sodium 144 mmol/L (135-145) 05/28/24 00:31
Potassium 4.7 mmol/L (3.5-5.1) 05/28/24 00:31
BUN 14 mg/dl (7-17) 05/28/24 00:31
Glucose 131 mg/dl (70-99) H 05/28/24 00:31
Calcium 9.7 mg/dl (8.4-10.2) 05/28/24 00:31
Ur Buprenorphine Negative (Negative) 05/28/24 09:29
Medications
-
Active Medications
Generic Name Dose Route Start Last Admin
Trade Name Freq PRN Reason Stop Dose Admin
Acetaminophen 650 mg 05/28/24 06:15
Acetaminophen 325 Mg Tablet PO 06/25/24 06:14
Q4HPRN PRN
Mild Pain / Temp > 101
Albuterol Sulfate 2.5 mg 05/28/24 06:15
Albuterol Nebs 2.5 Mg/3 Ml Ampul INH
R Q4HPRN PRN
SOB
Protocol
Amlodipine Besylate 2.5 mg 05/28/24 08:00 05/28/24 07:33
Amlodipine 2.5 Mg Tablet PO 06/25/24 07:59 2.5 mg
DAILY JOSE Administration
Levetiracetam 1,000 mg 05/28/24 20:00
Levetiracetam (100 Mg/Ml) 500 Mg/5 Ml Vial IV 06/25/24 19:59
Q12 JOSE
Lorazepam 1 mg 05/28/24 06:15
Lorazepam 2 Mg/Ml Vial IV 06/25/24 06:14
Q4HPRN PRN
Seizure activity
Pantoprazole Sodium 40 mg 05/28/24 08:00 05/28/24 07:33
Pantoprazole 40 Mg Delayed Release Tablet PO 06/25/24 07:59 40 mg
DAILY JOSE Administration
Sodium Chloride 0 flush 05/28/24 08:00
Sodium Chloride 0.9% (Flush) Syringe IV 06/25/24 07:59
PER PROTOCOL JOSE
Sodium Chloride 0.5 ml 05/28/24 07:16
Nss (Pf) 10 Ml Vial For Ativan 1 Mg Dose IV 06/25/24 07:15
Q4HPRN PRN
IV LORAZEPAM DILUTION
Thiamine HCl 100 mg 05/28/24 10:00 05/28/24 11:01
Thiamine 100 Mg Tablet PO 05/30/24 08:01 100 mg
DAILY JOSE Administration
Home Medications
�Medication �Instructions �Recorded
Centrum Silver Women Tablet 1 tab PO DAILY 09/01/18
cyanocobalamin (vitamin B-12) 1,000 mcg PO DAILY 01/13/21
1,000 mcg tablet
omeprazole magnesium 20 mg 20 mg PO DAILY 01/13/21
tablet,delayed release
amlodipine 2.5 mg tablet 2.5 mg PO DAILY 05/28/24
beclomethasone dipropionate 80 80 mcg inhalation BID 05/28/24
mcg/actuation aerosol inhaler
levalbuterol tartrate 45 2 inh inhalation Q6H PRN SOB 05/28/24
mcg/actuation aerosol inhaler
--- NOTE | 2024-05-28 09:32 | EEG.RPT ---
Electroencephalogram Report
Recording
Date of EE05/28/24
Type of EEG: Routine
Length of EEG recordin minutes
Done with Video Recording: Yes
Patient Status: Inpatient
Recording Conditions: Awake, Drowsy and Asleep
Hyperventilation Performed: No
Photic Stimulation Performed: Yes
Report
LESS THAN 1 HOUR EEG REPORT
EEG INTERPRETATION:
Unremarkable EEG for age
CLINICAL CORRELATION:
A normal EEG does not rule out a diagnosis of epilepsy. If clinical suspicion for seizure persists, a prolonged recording may be warranted.
Clinical correlation is advised.
METHODS:
A 21 channel digitized electroencephalogram (EEG) was performed in the [facility]. The 10/20 international system of electrode placement was used with ECG and lateral/vertical eye movements recorded. Persyst quantitative EEG
analysis was performed.
ELECTROENCEPHALOGRAPHER IMPRESSION(S):
Quality of study
Fair-Good
Background
Unremarkable, well maintained, medium amplitude alpha-frequency and unremarkable anterior-posterior voltage gradient
With eye opening the background activity changed to a low voltage mixture of frequencies.
Sleep
Drowsiness present
Stage 1 and 2 sleep recorded
Photic Stimulation
Did not activate the record
ECG
Normal sinus rhythm
[2024-05-28 09:44] LABS: Alcohol None Detected
[2024-05-28 10:09] LABS: Amphetamines Negative (Negative); Barbiturates Negative (Negative); Benzodiazepines Negative (Negative); Buprenorphine Negative (Negative); Cocaine Negative (Negative); Marijuana Negative (Negative); Methadone Negative (Negative); Methamphetamines Negative (Negative); Opiates Negative (Negative); Phencyclidine Negative (Negative); Tricyclic Antidepressants Negative (Negative)
[2024-05-28] MEDS: VITAMIN B1 100 MG PO (11:01)
--- NOTE | 2024-05-28 13:08 | PTOTSP ---
Speech Therapy Evaluation:
Pt presents with oropharyngeal swallow that is within functional limits. No s/sx of aspiration observed with thin liquids or regular solids. Pt remains at a low risk of aspiration, however will continue to follow with recent diet initiation and
pending brain MRI.
Recommend:
1. Initiate IDDSI Level 7 (regular) solids and thin liquids
2. Medications as tolerated (whole with thins per pt preference)
3. General aspiration precautions
4. Reflux precautions: upright all meals, remain upright for at least 30 minutes following meals
5. Continued ST at acute care level - likely brief
[2024-05-28 20:25] LABS: Blood Urea Nitrogen 15 mg/dl (7-17); Calcium 9.2 mg/dl (8.4-10.2); Carbon Dioxide 25 mmol/L (22-30); Chloride 104 mmol/L (98-107); Estimated Creatinine Clearance 62 ml/min; Glucose 158 mg/dl (70-99); Magnesium 2.2 mg/dl (1.6-2.3); Potassium 3.8 mmol/L (3.5-5.1); Sodium 141 mmol/L (135-145); eGFR > 60.00
[2024-05-28] MEDS: KEPPRA 1000 MG IV (21:05)
[2024-05-28] MEDS: LOVENOX 40 MG SC (21:05)
[2024-05-29 03:32] VITALS: BP 125/64
[2024-05-29 07:28] LABS: Hematocrit 37.7 % (37.0-47.0); Hemoglobin 12.8 g/dL (12.0-16.0); Mean Corpuscular Volume 97.2 fL (81.0-99.0); Mean Platelet Volume 9.9 fL (7.4-10.4); Platelet Count 251 10^3/uL (130-400); Red Blood Cell Count 3.88 10^6/uL (4.20-5.40); Red Cell Dist. Width 12.4 % (11.5-14.5); White Blood Cell Count 5.9 10^3/uL (4.8-10.8)
[2024-05-29 07:33] VITALS: BP 125/72
[2024-05-29 07:37] LABS: Blood Urea Nitrogen 14 mg/dl (7-17); Calcium 9.5 mg/dl (8.4-10.2); Carbon Dioxide 26 mmol/L (22-30); Chloride 105 mmol/L (98-107); Estimated Creatinine Clearance 54 ml/min; Glucose 98 mg/dl (70-99); Potassium 4.4 mmol/L (3.5-5.1); Sodium 141 mmol/L (135-145); eGFR > 60.00
[2024-05-29] MEDS: NORVASC 2.5 MG PO (09:20)
[2024-05-29] MEDS: PROTONIX 40 MG PO (09:21)
[2024-05-29] MEDS: KEPPRA XR (EXTENDED RELEASE) 1000 MG PO (09:21)
[2024-05-29] MEDS: VITAMIN B1 100 MG PO (09:21)
[2024-05-29] MEDS: KEPPRA IV (09:22)
[2024-05-29 10:12] VITALS: BP 121/62; PULSE 79; O2SAT 100
[2024-05-29 10:14] VITALS: BP 121/62; PULSE 79
--- NOTE | 2024-05-29 10:18 | PTOTSP ---
Patient demonstrates safe and independent mobility, no skilled physical therapy needs at this time.
--- NOTE | 2024-05-29 11:22 | W.PN.HOSP.TC ---
Addendum entered and electronically signed by Alex Parikh MD 06/01/24 07:51:
Acute metabolic encephalopathy suspected secondary to seizure activity
Original Note:
Today's Communication/Plan
-
Discharge today
Assessment / Plan
Assessment / Plan
Physical Exam
General: Not in acute distress
HEENT: Moist mucous membranes
Respiratory: CTAB
Cardiac: S1/S2 and Regular Rhythm
GI: Soft, Non Tender, Non Distended and Normal Bowel Sounds
Musculoskeletal: No Cyanosis and No Edema
Neuro: AAO x 3. Cranial Nerves 2 through 12 grossly intact. Strength 5/5 bilaterally, and sensation grossly intact bilaterally.
Assessment/Plan
Patient is a 69 y/o female with past medical history significant for hypertension and GERD who presented to ED for evaluation of unresponsive episode at home.
Seizure Activity
Abrupt onset of change in mental status with recurrent episodes of tongue biting from sleep
Probable left hemispheric focal onset generalizing seizures from sleep
- New recognition of seizure disorder. In retrospect, suspect that similar episode occurred in November but was unwitnessed at that time.
- Keppra load given in the ED.
- CT head and CTA were unremarkable.
- MRI brain showed 'Mild atrophy with sequelae of moderate small vessel ischemic disease. Right mastoid effusion.' as per radiologist's report
- Requested ENT input given patient's right mastoid effusion finding on MRI Brain
- EEG unremarkable
- Continue new extended release PO Keppra 1 gram Q12H (confirmed with neurology that this is what patient should get on discharge)
- Neurology evaluation for additional recommendations, appreciate neurology.
- Outpatient diagnostic polysomnogram to diagnose if there is a sleep-related abnormality producing increased likelihood of seizure
- Continue neurological checks and seizure precautions.
- [facility] [place] [facility]
- No driving
- Precautions with any activity
Right Mastoid Effusion
- Spoke with on-call ENT who mentioned that ENT will never ever treat that, and that it is a very common finding.
- Follow-up with PCP.
Metabolic Acidosis - RESOLVED
Benign Hypertension
- Stable.
- Continue home Amlodipine
GERD
- Stable. Continue daily PPI.
Allergic Asthma
- Stable. No current symptoms, dyspnea, cough, etc.
- Continue home Qvar
- Albuterol PRN.
Additional Past Medical History
Cervical radiculopathy/DDD, herniated disc C4-6, vitamin B12 deficiency, IBS, diverticulitis, thyroid nodule, asthma, osteopenia, arthritis
DVT Prophylaxis: Lovenox and SCDs.
Diet: As per speech therapy recommendations: IDDSI Level 7 (regular) and thin liquids
Code Status: Full Code
More than 30 minutes spent in discharge including
Final examination of the patient
Summarizing hospital stay
Instructions for continuing care to all relevant caregivers
Preparation of discharge records, prescriptions, and referral forms
Total time spent (in minutes): 38
Anticipated Discharge: Today
Subjective/Interval History
-
Date of Service: May 29, 2024
Patient was seen and examined. She denied any seizures over the past 24 hours, and she denied any numbness, tingling, dizziness, chest pain, shortness of breath or any other complaints.
Objective Data
-
Labs:
Laboratory Results
05/29/24
06:35
WBC 5.9
Hgb 12.8
Hct 37.7
Plt Count 251
Sodium 141
Potassium 4.4
Chloride 105
Carbon Dioxide 26
BUN 14
Creatinine 0.8
Glucose 98
Calcium 9.5
Vital Signs:
Vital Signs
Temp Pulse Resp BP Pulse Ox
98.5 F 63 20 125/72 99
05/29/24 07:33 05/29/24 07:33 05/29/24 07:33 05/29/24 07:33 05/29/24 08:00
I&O
05/28/24 05/29/24 05/30/24
06:59 06:59 06:59
Intake Total 240 / 240
Balance 240 / 240
--- NOTE | 2024-05-29 11:43 | W.PN.NEURO.1 ---
Today's Communication / Plan
-
Continue newly initiated levetiracetam 1 g by mouth every 12 hours
Outpatient diagnostic polysomnogram to diagnose if there is a sleep-related abnormality producing increased likelihood of seizure
Patient will require additional evaluation of white matter changes
Neuro Assessment/Plan
Assessment
Abrupt onset of change in mental status with recurrent episodes of tongue biting from sleep
Probable left hemispheric focal onset generalizing seizures from sleep
MRI of brain failed to demonstrate structural abnormalities producing symptoms
Plan
Continue newly initiated levetiracetam 1 g by mouth every 12 hours
Outpatient diagnostic polysomnogram to diagnose if there is a sleep-related abnormality producing increased likelihood of seizure
Patient will require additional evaluation of white matter changes
Will follow as outpatient.
Subjective/Objective
Subjective Data
Date of Service: May 29, 2024
Objective Data
Vital Signs
Temp Pulse Resp BP Pulse Ox
36.9 C 63 20 125/72 99
05/29/24 07:33 05/29/24 07:33 05/29/24 07:33 05/29/24 07:33 05/29/24 08:00
Lab Results
05/29/24 06:35
05/29/24 06:35
Sodium 141 mmol/L (135-145) 05/29/24 06:35
Potassium 4.4 mmol/L (3.5-5.1) 05/29/24 06:35
BUN 14 mg/dl (7-17) 05/29/24 06:35
Glucose 98 mg/dl (70-99) 05/29/24 06:35
Calcium 9.5 mg/dl (8.4-10.2) 05/29/24 06:35
Ur Buprenorphine Negative (Negative) 05/28/24 09:29
Patient Allergies
metronidazole [From Flagyl] Allergy (Verified 05/28/24 00:28)
Nausea / Vomiting
pineapple Allergy (Verified 05/28/24 00:28)
Rash
[2024-05-29 11:46] VITALS: BP 132/65
--- NOTE | 2024-05-29 12:11 | CON.MD ---
Consultation - Medical
-
ENT consulted for mastoid effusion seen on MRI.
Full consult dictated.
This is an incidental finding; no therapy or f/u necessary
[2024-05-29 13:27] LABS: C-Reactive Protein < 5.00 mg/L (0.0-10.00)
[2024-05-29 13:59] LABS: Ferritin 57.7 ng/ml (11.1-264.0)
--- NOTE | 2024-05-29 14:28 | PN.CDI ---
CDI
- -
CDI:
Physician Documentation Request
Admit Date: 05/28/24 05:23
Dear Doctor Jl,
Please review the following and provide your response in the progress notes.
Clinical Indicators:
- 05/28 Er Physician 'presents to ED via EMS for suspected seizure activity witnessed by '
- 'Pt remained unresponsive until 911 arrived'
- 05/29 PN 'Abrupt onset of change in mental status'
- 05/28 Rn note 'patient started rambling giberish and not making any sense'
Please clarify which, if any of the following, is the most likely etiology of the confusion/altered mental status.
Acute metabolic encephalopathy due seizure activity
Acute Delirium - indicate known or suspected etiology such as postoperative, due to opioids or other drugs etc. Can also indicate unknown or mixed etiologies.
Acute or subacute confusional state due to (specify known or suspected etiology)
Other (please specify)
Use of terms such as suspected, likely, concern for, or probable (associated with a specific diagnosis that is being evaluated, monitored, or treated as if it exists) are acceptable and can be coded in the inpatient setting, when documented at the
time of discharge.
Thank you,
Luciana Barney RN
CDI Specialist
Please use your independent medical judgment in providing your response.
--- NOTE | 2024-05-29 14:34 | CM ---
CM met with Therese at bedside. She lives with her in a 2 story home wtih 1 entry step. [employer] she has been (I) amb and adls.
Plan: Discharge to home with no needs.
PCP: Mikal Davidson
Pharmacy: [facility] in [place]
[2024-05-31 10:19] LABS: Lyme Antibody Screen, EIA Negative (Negative)
[2024-06-01 08:54] LABS: ANA, IgG Reflex to HEp-2 None Detected (None Detected)
== END 2024-05-29 14:03 | disposition home or self-care (01) | DRG 101 ==
LOC: 4 EAST ACU 05:23
PROVIDERS: ADMITTING PHYSICIAN Hospitalist; ATTENDING PHYSICIAN Hospitalist; CONSULT PHYSICIAN Otolaryngology; CONSULT PHYSICIAN Psychiatry & Neurology Neurology; EMERGENCY PHYSICIAN Student in an Organized Health Care Education/Training Program; FAMILY PHYSICIAN Family Medicine
DX: G40.209 Localization-related (focal) (partial) symptomatic epilepsy and epileptic syndromes with complex partial seizures, not intractable, without status epilepticus (principal); E87.20 Acidosis, unspecified; I10 Essential (primary) hypertension; K21.9 Gastro-esophageal reflux disease without esophagitis; J45.909 Unspecified asthma, uncomplicated; M54.12 Radiculopathy, cervical region; E53.8 Deficiency of other specified B group vitamins
CPT/HCPCS: 70450; 70496; 70498; 70553; 80048; 80053; 80306; 82077; 82728; 82962; 83735; 84443; 85025; 85027; 86038; 86140; 86618; 92610; 95816; 96374; 96375; 97162; 97166; 99285; A9575; Q9967

== ENCOUNTER → 2024-06-30 12:14 | Outpatient (REF) | payer MEDICARE, BC, SELFPAY | LOC: DHSLP 12:14 | PROVIDERS: ATTENDING PHYSICIAN Internal Medicine Critical Care Medicine; FAMILY PHYSICIAN Family Medicine | DX: G47.00 Insomnia, unspecified (principal); R06.83 Snoring | CPT/HCPCS: 95810 ==

== ENCOUNTER → 2024-10-23 12:17 | Outpatient (REF) | payer MEDICARE, BC, SELFPAY ==
[2024-10-23 15:43] LABS: C-Reactive Protein < 5.00 mg/L (0.0-10.00)
[2024-10-23 16:16] LABS: TSH Reflex To Free T4 1.09 uIU/ml (0.47-4.68)
[2024-10-23 16:20] LABS: Ferritin 58.2 ng/ml (11.1-264.0)
[2024-10-23 16:28] LABS: Erythrocyte Sed Rate 9 mm/hour (0-20)
[2024-10-23 16:32] LABS: Hepatitis B Core Ab, Total Negative (Negative); Hepatitis C Antibody Negative (Negative)
[2024-10-23 16:52] LABS: Folate > 20.0 ng/ml (2.76-20); Vitamin B12 840 pg/ml (239-931)
[2024-10-24 15:25] LABS: Lyme Antibody Screen, EIA Negative (Negative)
[2024-10-25 11:14] LABS: Rheumatoid Agglutinin Less Than 10 IU (<10 IU)
[2024-10-25 16:25] LABS: ANA, IgG Reflex to HEp-2 None Detected (None Detected)
[2024-10-25 23:02] LABS: Hepatitis D Antibody Negative (Negative)
[2024-10-26 01:08] LABS: ds-DNA Ab, IgG Reflex To Titer 6 IU (0-24)
[2024-10-26 02:53] LABS: SSA 52 (Ro)(ENA) Ab, IgG 1 AU/mL (0-40); SSA 60 (Ro)(ENA) Ab, IgG 0 AU/mL (0-40); SSB (La)(ENA) Ab, IgG 0 AU/mL (0-40)
== END ==
LOC: HWWDC 12:17
PROVIDERS: ATTENDING PHYSICIAN Obstetrics & Gynecology Gynecology; FAMILY PHYSICIAN Family Medicine; REFERRING PHYSICIAN Psychiatry & Neurology Neurology
DX: Z12.31 Encounter for screening mammogram for malignant neoplasm of breast (principal); R90.89 Other abnormal findings on diagnostic imaging of central nervous system; D64.9 Anemia, unspecified; E04.1 Nontoxic single thyroid nodule; M85.80 Other specified disorders of bone density and structure, unspecified site
CPT/HCPCS: 36415; 77063; 77067; 82306; 82607; 82728; 82746; 84443; 85652; 86038; 86140; 86225; 86235; 86430; 86618; 86692; 86704; 86780; 86803

== ENCOUNTER → 2024-12-14 13:34 | Outpatient (REF) | payer MEDICARE, BC, SELFPAY | LOC: PAVMRI 13:34 | PROVIDERS: ATTENDING PHYSICIAN Psychiatry & Neurology Neurology; FAMILY PHYSICIAN Family Medicine | DX: R90.89 Other abnormal findings on diagnostic imaging of central nervous system (principal) | CPT/HCPCS: 72157; A9575 ==

== ENCOUNTER → 2024-12-18 13:32 | Outpatient (REF) | payer MEDICARE, BC, SELFPAY | LOC: PAVMRI 13:32 | PROVIDERS: ATTENDING PHYSICIAN Psychiatry & Neurology Neurology; FAMILY PHYSICIAN Family Medicine | DX: R56.9 Unspecified convulsions (principal); R90.89 Other abnormal findings on diagnostic imaging of central nervous system | CPT/HCPCS: 70553; 72156; A9575 ==

== ENCOUNTER → 2025-03-01 07:52 | Outpatient (REF) | payer MEDICARE, BC, SELFPAY ==
[2025-03-01 09:47] LABS: Hematocrit 38.3 % (37.0-47.0); Hemoglobin 12.7 g/dL (12.0-16.0); Mean Corp Hgb Conc. 33.2 g/dL (33.0-37.0); Mean Corpuscular Volume 96.5 fL (81.0-99.0); Nucleated Red Blood Cells % 0 %; Platelet Count 281 10^3/uL (130-400); Red Cell Dist. Width 12.0 % (11.5-14.5)
[2025-03-01 14:41] LABS: TSH 1.12 uIU/ml (0.47-4.68)
[2025-03-01 15:35] LABS: ALT (SGPT) 31 U/L (0-35); AST (SGOT) 34 U/L (14-36); Albumin 4.6 g/dl (3.5-5.0); Alkaline Phosphatase 56 U/L (38-126); Blood Urea Nitrogen 18 mg/dl (7-17); Calcium 9.8 mg/dl (8.4-10.2); Carbon Dioxide 31 mmol/L (22-30); Chloride 107 mmol/L (98-107); Glucose 111 mg/dl (70-99); HDL Cholesterol 94 mg/dl; LDL Cholesterol, Calculated 145 mg/dl; Potassium 5.3 mmol/L (3.5-5.1); Sodium 141 mmol/L (135-145); Total Protein 7.5 g/dl (6.3-8.2); Very Low Density Lipoprotein 12 mg/dl (0-30); eGFR > 60.00
== END ==
LOC: HWLAB 07:52
PROVIDERS: ATTENDING PHYSICIAN Internal Medicine; FAMILY PHYSICIAN Family Medicine
DX: E04.1 Nontoxic single thyroid nodule (principal); D64.9 Anemia, unspecified; E78.2 Mixed hyperlipidemia
CPT/HCPCS: 36415; 80053; 80061; 82570; 84100; 84156; 84443; 85025

== ENCOUNTER 2025-05-13 06:25 | Day surgery (SDC) | payer MEDICARE, BC, SELFPAY | END 2025-05-13 14:32 | disposition home or self-care (01) | LOC: GI 06:25 | PROVIDERS: ATTENDING PHYSICIAN Internal Medicine Gastroenterology | DX: Z12.11 Encounter for screening for malignant neoplasm of colon (principal); D12.3 Benign neoplasm of transverse colon; K57.50 Diverticulosis of both small and large intestine without perforation or abscess without bleeding; R12 Heartburn; K44.9 Diaphragmatic hernia without obstruction or gangrene; K31.7 Polyp of stomach and duodenum; K20.80 Other esophagitis without bleeding; K22.89 Other specified disease of esophagus; Z80.0 Family history of malignant neoplasm of digestive organs; Z86.0101 Personal history of adenomatous and serrated colon polyps | CPT/HCPCS: 45385; 43239; 88305 ==